=== PATIENT | male | born 1965 | race Caucasian/White ===

== ENCOUNTER 2023-02-07 21:31 | Emergency (ER) | payer OTHER ==
[~2023-02-07] VITALS: Ht 172.7 cm; Wt 82.0 kg
[2023-02-07 21:37] VITALS: BP 153/104
[2023-02-07] MEDS ORDERED: IBUPROFEN 400MG TABLET PO ONE (22:30)
[2023-02-07] MEDS ORDERED: GABAPENTIN 300MG CAPSULE PO ONE (22:30)
[2023-02-07] MEDS ORDERED: ACETAMINOPHEN 325MG TABLET PO ONE (22:30)
== END 2023-02-07 22:50 ==
LOC: ER 21:31
DX: R07.0 Pain in throat (principal); R56.9 Unspecified convulsions
CPT/HCPCS: 99284